=== PATIENT | male | born 1980 | race African-American/Black ===

== ENCOUNTER → 2021-10-15 | Day surgery (SDC) | payer OTHER ==
[~2021-10-15] MED LIST: LOTREL 5-10 MG1 EACH PO
--- NOTE | 2021-10-16 10:54 | EKG ---
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
--- NOTE | 2021-10-19 10:07 | PATH ---
[facility] [address] [place] [address] PATHOLOGY RPT PROCEDURE Name: JARRED OSEGUERA Room: [facility] Tesfaye.#: [id number] Admission: 10/15/21 Date of : 80 Discharge: Report #: [id number] Path Case #: [id number] Accession Number: [id number] . 01 Material submitted: . PART A: suprapubic area - SUPRAPUBIC HIDRADENITIS PART B: thigh - LEFT THIGH HIDRADENITIS. Modifiers: left . 02 Diagnosis: A, B. Suprapubic hidradenitis and left thigh hidradenitis: - Benign skin with features typical of hidradenitis suppurativa including multiple dermal cysts, abscess formation, chronic inflammation and fibrosis. (LUDMILA:danyel; 10/18/2021) QTP 10/18/2021 1518 Local . 02 Electronically signed: . Parviz Hollis MD, Pathologist NPI- [id number] . 01 Gross description: . A. Received in formalin labeled "Jarred Oseguera, suprapubic hidradenitis" is an ellipse of dark brown skin and underlying soft tissue measuring 4.3 x 3.0 x 2.1 cm. The skin surface displays multiple ulcerated saldaña-red lesions covering a 3.5 x 1.4 cm area. The specimen is sectioned to reveal a fibrotic cut surface displaying multiple sinus tracts. A medical device sales representative section is submitted in A1. . B. Received in formalin labeled "Jarred Oseguera, left thigh hidradenitis" is an ellipse of dark brown skin and underlying soft tissue measuring 8.1 x 4.3 x 2.6 cm. The skin surface displays multiple firm saldaña-lund lesions ranging from 0.6-2.6 cm and covering approximately 15% of the surfaces. The specimen is sectioned to reveal a fibrotic cut surface displaying multiple sinus tracts comprising nearly the entire specimen. A medical device sales representative section is submitted in cassette B1. ([facility]; 10/16/2021) [facility] 10/16/2021 1005 Local . 02 Pathologist provided ICD-10: L73.2 . 02 CPT . 097779, [id number] Specimen Comment: A courtesy copy of this report has been sent to [phone] Specimen Comment: Report sent to Specimen Comment: A duplicate report has been generated due to demographic updates. Performed at: [address] [place] [address] PATHOLOGY RPT PROCEDURE Name: JARRED OSEGUERA Room: [facility]#: [id number] Admission: 10/15/21 Date of : 80 Discharge: Report #: [id number] Path Case #: [id number] [address], [place], [place] [id number] MD Adebayo Lambert MD Phone: [phone] Performed at: 02 [facility] [place] [address], [place], [place] [id number] MD Parviz Hollis MD Phone: [phone]
--- NOTE | 2021-10-22 09:22 | OP ---
[facility] [address] [place] [address] OPERATIVE REPORT Name: JARRED OSEGUERA Room: [facility].Yonny.#: [id number] Admission: 10/15/21 Attend Phys: Ankur Alfonso Discharge: Date of : 80 Report #: [id number] THIS REPORT FOR: cc: FAM - No family physician/PCP FAM - No family physician/PCP Ankur Alfonso MD ~ DATE OF SURGERY: 10/15/2021 PREOPERATIVE DIAGNOSES: Hidradenitis suppurativa with abscess of the left thigh and suprapubic abdomen. POSTOPERATIVE DIAGNOSES: Hidradenitis suppurativa with abscess of the left thigh and suprapubic abdomen. OPERATION: 1. Excision of hidradenitis suppurativa of the left thigh. 2. Excision of suprapubic hidradenitis suppurativa. SURGEON: Ankur Alfonso MD. ANESTHESIA: General. ESTIMATED BLOOD LOSS: Minimal. SPECIMENS: 1. Left thigh culture. 2. Left thigh hidradenitis suppurativa. 3. Suprapubic culture. 4. Suprapubic hidradenitis suppurativa. DESCRIPTION OF PROCEDURE: After informed consent was obtained, the patient was brought to the operating room and placed supine. SCDs were placed and working, preoperative antibiotics were administered, general anesthesia was induced. The abdomen was prepped and draped in the usual sterile fashion. The left thigh was prepped and draped in the usual sterile fashion as well. A 4 x 3 cm elliptical incision was made over the palpable hidradenitis in the suprapubic abdomen in the midline. Cautery dissection was made down to the healthy fat. Specimen was then excised and the pus was cultured. The area was then packed with sterile gauze. A 7 x 4 cm elliptical incision was made in the left thigh. Cautery dissection was made down to the healthy subcutaneous fat. The area was then irrigated. Specimens were taken. The area was then packed with sterile gauze. [place] [address] OPERATIVE REPORT Name: JARRED OSEGUERA Room: [facility].#: [id number] Admission: 10/15/21 Attend Phys: Ankur Alfonso Discharge: Date of : 80 Report #: [id number] COMPLICATIONS: None. DISPOSITION: The patient was taken to recovery in satisfactory condition. <ELECTRONICALLY SIGNED> By: Ankur Alfonso MD 10/22/21 0922 1321 1330Ankur Alfonso MD /nt
== END | disposition home or self-care (01) ==
LOC: M.SUR 07:32
PROVIDERS: ATTEND Surgery
DX: L73.2 Hidradenitis suppurativa (principal); L02.416 Cutaneous abscess of left lower limb; Z79.899 Other long term (current) drug therapy; Z20.822 Contact with and (suspected) exposure to COVID-19